=== PATIENT | male | born 1970 | race American Indian/Alaskan Native ===

== ENCOUNTER 2016-12-13 15:32 | Emergency (ER) | payer MEDICAID ==
[2016-12-13 15:40] VITALS: O2SAT 98
--- NOTE | 2016-12-13 16:55 | RAD ---
HISTORY: syncope COMPARISON: None available. TECHNIQUE: Chest, one view. FINDINGS: Examination limited by habitus and hypoinflation. LUNGS: No focal consolidation. Please note that chest x-ray has limited sensitivity for the detection of pulmonary masses. PLEURA: No significant pleural effusion identified. No definite pneumothorax . CARDIOVASCULAR: Heart size appears top normal. OSSEOUS STRUCTURES: No acute osseous abnormality identified. VISUALIZED UPPER ABDOMEN: Unremarkable. OTHER FINDINGS: None. IMPRESSION: No focal consolidation, significant pleural effusion, or definite pneumothorax identified.
[2016-12-13 17:28] LABS: CHLORIDE 96 mmol/L (98-107); SODIUM 137 mmol/L (132-148)
--- NOTE | 2016-12-13 17:28 | C.PDOC ---
History Of Present Illness 46 y/o male referred to ED by PMD for headache, dizziness and syncopal episodes over the past 2 days. Pt denies substance abuse. Pt also reports mild headache, has not taken any medications at home. Pt denies chest pain, SOB, vomiting, vision changes, weakness, numbness or any other complaints. Time Seen by Provider: 12/13/16 16:24 Chief Complaint (Nursing): Syncope History Per: Patient History/Exam Limitations: no limitations Onset/Duration Of Symptoms: Days Current Symptoms Are (Timing): Still Present Severity: Moderate Recent travel outside of the [place]: No Past Medical History Reviewed: Historical Data, Nursing Documentation, Vital Signs Vital Signs: Last Vital Signs Temp 98 F 12/13/16 15:36 Pulse 76 12/13/16 15:36 Resp 20 12/13/16 15:36 BP 131/84 12/13/16 15:36 Pulse Ox 98 12/13/16 19:13 - Medical History PMH: HTN Family History: States: Unknown Family Hx - Social History Hx Alcohol Use: Yes Hx Substance Use: Yes Review Of Systems Except As Marked, All Systems Reviewed And Found Negative. Constitutional: Negative for: Fever Eyes: Negative for: Vision Change Neurological: Positive for: Other (syncopal episodes). Negative for: Weakness, Numbness, Headache, Dizziness Physical Exam - Physical Exam Appears: Non-toxic, No Acute Distress, Other (morbid obesity, smells of cigarettes) Skin: Warm, Dry, No Rash Head: Atraumatic, Normacephalic Eye(s): bilateral: PERRL, EOMI Neck: Normal ROM, Supple Chest: Symmetrical Cardiovascular: Rhythm Regular, No Murmur Respiratory: Normal Breath Sounds, No Rales, No Rhonchi, No Wheezing Gastrointestinal/Abdominal: Soft Extremity: Normal ROM Extremity: Bilateral: Atraumatic Neurological/Psych: Oriented x3, Normal Speech, Normal Cognition, Normal Cranial Nerves, Normal Motor, Normal Sensation ED Course And Treatment - Laboratory Results Result Diagrams: 12/13/16 18:51 12/13/16 17:13 Lab Interpretation: Abnormal (tox + cocaine/opiates) ECG: Interpreted By Me ECG Rhythm: Sinus Rhythm ECG Interpretation: Normal Rate From EC O2 Sat by Pulse Oximetry: 98 (on room air) Pulse Ox Interpretation: Normal - Radiology CXR: Interpreted by Me CXR Interpretation: Yes: No Acute Disease Reevaluation Time: 19:11 Reassessment Condition: Unchanged - Physician Consult Information Outcome Of Conversation: 1819: d/w Dr. Heath Martínez- ok to d/c home for opt f /u. Medical Decision Making Medical Decision Making: polysubstance abuse-cocaine/opiates probably NOT organic "syncope" findings d/w @ bedside with pt's verbal consent. Disposition Doctor Will See Patient In The: Office Counseled Patient/Family Regarding: Studies Performed, Diagnosis - Disposition Referrals: Heath Martínez MD [Medical Doctor] - Disposition: HOME/ ROUTINE Disposition Time: 19:12 Condition: GOOD Additional Instructions: stop cocaine and opiate abuse Seek detox program (lists given) Seek outpatient counseling through our [facility]. Instructions: Cocaine Abuse (ED), Narcotic Abuse (ED) - Clinical Impression Clinical Impression: Syncope, Lethargy, Headache - Scribe Statement The provider has reviewed the documentation as recorded by the Jenniffer Baker Provider Attestation: All medical record entries made by the Jenniffer were at my direction and personally dictated by me. I have reviewed the chart and agree that the record accurately reflects my personal performance of the history, physical exam, medical decision making, and the department course for this patient. I have also personally directed, reviewed, and agree with the discharge instructions and disposition.
--- NOTE | 2016-12-13 17:28 | CT ---
PROCEDURE: CT HEAD WITHOUT CONTRAST. HISTORY: dizzy, YUNG's, syncope COMPARISON: None available. TECHNIQUE: Axial computed tomography images were obtained through the head/brain without intravenous contrast. Radiation dose: Total exam DLP = 797.36 mGy-cm. This CT exam was performed using one or more of the following dose reduction techniques: Automated exposure control, adjustment of the mA and/or kV according to patient size, and/or use of iterative reconstruction technique. FINDINGS: HEMORRHAGE: No intracranial hemorrhage. BRAIN: No mass effect or edema. The valdez-white matter differentiation appears intact. Please note that MRI with diffusion imaging is more sensitive in the detection of acute ischemic event. VENTRICLES: No hydrocephalus. CALVARIUM: Unremarkable. PARANASAL SINUSES: Unremarkable as visualized. No significant inflammatory changes. MASTOID AIR CELLS: Unremarkable as visualized. No inflammatory changes. OTHER FINDINGS: 1.6 cm subcutaneous lesion within the right scalp, possibly sebaceous cyst. IMPRESSION: No acute intracranial pathology identified. 1.6 cm subcutaneous lesion within the right scalp, possibly sebaceous cyst.
[2016-12-13 17:29] LABS: POTASSIUM 4.2 mmol/L (3.6-5.2)
[2016-12-13 17:30] LABS: CHOLESTEROL 152 mg/dL (0-199)
[2016-12-13 17:31] LABS: ALB/GLOB RATIO 1.3 (1.0-2.1); ALKALINE PHOSPHATASE 63 U/L (38-126); ALT/SGPT 21 U/L (21-72); AST/SGOT 31 U/L (17-59); BILIRUBIN,TOTAL 0.5 mg/dL (0.2-1.3); BLOOD UREA NITROGEN 19 mg/dL (9-20); CARBON DIOXIDE 27 mmol/L (22-30); GFR AFRICAN-AMERICAN > 60; GLUCOSE,RANDOM 105 mg/dL (75-110); TOTAL PROTEIN 7.3 g/dL (6.3-8.3)
[2016-12-13 17:35] LABS: RBC URINE 2 /hpf (0-3); URINE BACTERIA FEW (<OCC); URINE BILIRUBIN NEGATIVE (NEGATIVE); URINE BLOOD NEGATIVE (NEGATIVE); URINE COLOR Yellow (YELLOW); URINE GLUCOSE (UA) NORMAL (Normal); URINE KETONE NEGATIVE (NEGATIVE); URINE LEUKOCYTE ESTERASE 1+ Leu/uL (Negative); URINE PROTEIN NEGATIVE (NEGATIVE); URINE UROBILINOGEN NORMAL mg/dL (0.2-1.0); WBC URINE 14 /hpf (0-5)
[2016-12-13 18:56] LABS: BASO # 0.1 K/uL (0.0-0.2); BASO % 1.3 % (0.0-2.0); EOS # 0.2 K/uL (0.0-0.7); EOS % 2.7 % (0.0-4.0); HEMATOCRIT 35.7 % (35.0-51.0); LYMPH # 1.5 K/uL (1.0-4.3); LYMPH % 23.8 % (20.0-40.0); MEAN CELL VOLUME 91.8 fL (80.0-94.0); MEAN CORPUSCULAR HEMOGLOBIN 30.9 pg (27.0-31.0); MEAN CORPUSCULAR HGB CONC 33.6 g/dL (33.0-37.0); MEAN PLATELET VOLUME 8.2 fL (7.2-11.7); MONO # 0.6 K/uL (0.0-0.8); MONO % 9.8 % (0.0-10.0); NRBC % 0.1 % (0.0-2.0); RED CELL DISTRIBUTION WIDTH 12.6 % (11.5-14.5); WHITE BLOOD COUNT 6.5 K/uL (4.8-10.8)
[2016-12-13 19:53] VITALS: BP 118/77; PULSE 84; RESP 18; TEMP 98.2
--- NOTE | 2016-12-14 16:51 | CARD ---
APPROVED REPORT EKG Measurement Heart [id number] <Conclusion> Normal sinus rhythm Normal ECG
== END 2016-12-13 19:53 | disposition home or self-care (01) ==
LOC: C.ER 15:32
DX: R55 Syncope and collapse (principal); R51 Headache; R53.83 Other fatigue; F14.10 Cocaine abuse, uncomplicated; F11.10 Opioid abuse, uncomplicated